=== PATIENT | male | born 1990 | race American Indian/Alaskan Native ===

== ENCOUNTER 2018-11-06 01:22 | Emergency (ER) | payer OTHER ==
[2018-11-06] MEDS ORDERED: NACL 0.9% 1000 ML 2,000 ML ONE (02:24)
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
[2018-11-06] MEDS ORDERED: HALDOL IM PRN (03:23)
[2018-11-06] MEDS ORDERED: ATIVAN IM PRN (03:23)
[2018-11-06] MEDS ORDERED: XYLOCAINE 2% INFILTRATI ONE (03:24)
[2018-11-06] MEDS ORDERED: NACL 0.9% IR ONE (03:24)
[2018-11-06] MEDS ORDERED: NACL 0.9% 500 ML IR ONE ×2 (03:32→03:45)
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
[2018-11-06] MEDS ORDERED: NACL 0.9% IR SCH (04:00)
[2018-11-06 04:31] LABS: BUN/Creatinine Ratio 18; Blood Urea Nitrogen 14 mg/dL (9-20); Calcium 9.7 mg/dL (8.4-10.2); Hemolysis Index 6
[2018-11-06] MEDS ORDERED: KEFLEX PO ONE (04:57)
[2018-11-06] MEDS ORDERED: ANTIBIOTIC OINT TP STA (04:57)
[2018-11-06] MEDS ORDERED: K-DUR PO ONE (04:57)
[2018-11-06] MEDS ORDERED: BOOSTRIX IM ONE (04:57)
[2018-11-06] MEDS ORDERED: TRIPLE ANTIBIOTIC TP ONE (05:01)
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
[2018-11-06 09:44] VITALS: BP 101/60
[2018-11-06] MEDS ORDERED: IBUPROFEN ONE (09:50)
[2018-11-06] MEDS ORDERED: IBUPROFEN PO ONE (09:52)
== END 2018-11-06 11:32 | disposition home or self-care (01) ==
LOC: ED 01:22
DX: S61.210A Laceration without foreign body of right index finger without damage to nail, initial encounter (principal); S61.216A Laceration without foreign body of right little finger without damage to nail, initial encounter; S61.214A Laceration without foreign body of right ring finger without damage to nail, initial encounter; S09.90XA Unspecified injury of head, initial encounter; F10.129 Alcohol abuse with intoxication, unspecified; F17.200 Nicotine dependence, unspecified, uncomplicated; X99.9XXA Assault by unspecified sharp object, initial encounter; Y93.89 Activity, other specified; Y92.89 Other specified places as the place of occurrence of the external cause; Y99.8 Other external cause status
CPT/HCPCS: 12002; 36415; 70450; 70486; 72125; 73130; 80048; 82550; 83735; 90471; 90715; 96372; 99284; G0480; J1630; J2060; J7030; 80320; A6250